=== PATIENT | male | born 1985 | race Caucasian/White ===

== ENCOUNTER 2016-08-02 17:44 | Emergency (ER) | payer MEDICARE, MEDICAID ==
[~2016-08-02] VITALS: Ht 175.3 cm; Wt 98.0 kg
[~2016-08-02 17:44] MED LIST: AMOX-358 PO; AMOX500C5 PO; ARIP15TA3 PO; BNZT1T PO; BUTA-249 PO; BUTA1CAP3 PO; CEPH-507 PO; CLIN-78 PO; DIPH12.510 PO; GBPN100C PO; HYDR-3702 PO; HYDR-700 PO; HYDR50TA77 PO; IBP800T PO; IBUP200C PO; LORA-405 PO; METH4TAB27 PO; NAPR500T PO; NAPR500T8 PO; NF-TORA10 PO; OLN5T PO; OXYC1TAB87 PO; QTP25T PO; QUET50TA PO; QUET50TA21 PO; TRAM-25 PO; ZPR20C; no medications
--- OUTSIDE RECORDS SUMMARY | 2016-08-02 17:49 | XMS REPORT | Continuity of Care Document ---
Author Author [facility] Address Unknown Phone Unavailable Support Name Relationship Address Phone SOFY HOWARD MD Caregiver [address] [place] [address] Jeremy Bobo MD Caregiver [address] [id number] [place] Next Of Kin [address] [place] [address] Insurance Providers Payer Name Policy Number Subscriber Name Relationship Medicare A And B [id number] Caleb Feliciano 20 Self / Same As Patient Advance Directives Directive Response Recorded Date/Time Advanced Directives No 07/24/16 7:37am Chief Complaint and Reason for Visit Chief Complaint Dental Complaint Reason for Visit Periapical abscess with facial involvement Problems Active Problems Medical Problem Onset Date Status Abrasion Unknown Resolved Alcohol abuse Unknown Chronic Alcohol withdrawal Unknown Acute Allergic reaction Unknown Acute Anxiety Unknown Acute Broken tooth with complication ~02/20/2015 Chronic Cellulitis of lip Unknown Acute Chronic headache disorder ~11/01/2013 Chronic Cigarette smoker 02/07/2012 Chronic Corneal abrasion ~05/12/2014 Resolved Dental caries Unknown Chronic Dental caries Unknown Chronic Dental trauma ~02/11/2015 Resolved Depression 08/06/2012 Chronic Dog bite of finger Unknown Acute Drug induced akathisia ~06/21/2015 Acute Dystonic drug reaction ~10/01/2014 Resolved Fractured tooth Unknown Resolved Gastroesophageal reflux disease ~03/03/2015 Acute Headache ~11/07/2013 Resolved Laceration of finger Unknown Acute Mental health problem ~08/19/2014 Resolved Minor head injury without loss of consciousness Unknown Resolved Nausea ~03/03/2015 Acute Nausea and vomiting in adult ~03/03/2015 Acute Pain, dental ~04/20/2014 Resolved Periapical abscess with facial involvement Unknown Acute Psychosis Unknown Acute Strain of ankle and foot Unknown Resolved Toothache ~02/25/2015 Chronic Medications Current Home Medications Medication Dose Units Route Directions Days/Qty Instructions Start Date Olanzapine 5 Mg 5 Mg ORAL Daily 30 Days 05/17/15 Benztropine Mesylate (Cogentin) 1 Mg 1 Mg ORAL Twice A Day 20 06/21/15 Naproxen 500 Mg 500 Mg ORAL Twice A Day 30 09/19/15 Clindamycin Hcl 150 Mg 450 Mg ORAL Three Times A Day 63 07/24/16 Acetaminophen/Hydrocodone Bitart 1 Each 1-2 Tab ORAL Every 6 Hours as needed for Pain 24 07/24/16 Past Home Medications Medication Directions Ordered Status Ziprasidone Hcl 20 Mg Capsule, 02/07/12 Discontinued [No Medications] , 11/01/13 Discontinued Butalb/Acetaminophen/Caffeine 1 Each Tablet, 1 Each Oral Q4-6 Hrs as needed for Pain 11/01/13 Discontinued Ibuprofen 200 Mg Capsule, 200-300 Mg Oral As Needed 11/07/13 Discontinued Aripiprazole 15 Mg Tablet, 15 Mg Oral Daily 10/01/14 Discontinued Hydroxyzine Hcl 50 Mg Tablet, 50 Mg Oral Every 6 Hours 10/01/14 Discontinued Quetiapine Fumarate 25 Mg Tablet, 25 Mg Oral Twice A Day 10/01/14 Discontinued Diphenhydramine Hcl 25 Mg/10 Ml Elixir, 25 Mg Oral Bedtime 10/01/14 Discontinued Methylprednisolone 21 Tab/Pkt Tablet, 21 Tab Oral As Directed 10/01/14 Discontinued Lorazepam 1 Mg Tablet, 1 Mg Oral Three Times A Day as needed for Anxiety 12/11 Discontinued Butalbital/Aspirin/Caffeine 1 Each Capsule, 1-2 Each Oral Every 6 Hours for Pain 12/21/14 Discontinued Quetiapine Fumarate 25 Mg Tablet, 75 Mg Oral Daily 01/01/15 Discontinued Gabapentin (Neurontin) 100 Mg Capsule, Unknown Dose Oral Three Times A Day 01/01/15 Discontinued Hydroxyzine Hcl 25 Mg Tablet, Unknown Dose Oral Three Times A Day 01/01/15 Discontinued Quetiapine Fumarate 50 Mg Tablet, 50 Mg Oral Daily 02/10/15 Discontinued Ibuprofen (Motrin) 800 Mg Tablet, 800 Mg Oral Every 8HRS 02/11/15 Discontinued Tramadol Hcl 50 Mg Tablet, 50 Mg Oral Every 8HRS as needed for Severe Pain Discontinued Oxycodone/Acetaminophen 1 Tab Tablet, 1 Tab Oral Three Times A Day as needed for Pain 02/20/15 Discontinued Amoxicillin 500 Mg Capsule, 500 Mg Oral Three Times A Day 02/20/15 Discontinued Naproxen 500 Mg Tablet.dr, 500 Mg Oral Twice A Day for Pain 02/20/15 Discontinued Quetiapine Fumarate 50 Mg Tablet, 1 Tab Oral Bedtime 02/25/15 Discontinued Ketorolac Tromethamine 10 Mg Tab, 10 Mg Oral Every 6 Hours as needed for Pain 02/25/15 Discontinued Cephalexin 500 Mg Capsule, 500 Mg Oral Three Times A Day 02/25/15 Discontinued Amoxicillin/Clavulanate Potassium 1 Each Tablet, 1 Each Oral Twice A Day Discontinued Amoxicillin 500 Mg Capsule, 500 Mg Oral Three Times A Day 09/19/15 Discontinued Social History Query Response Start Date Stop Date Smoking Status Current every day smoker Hospital Discharge Instructions No hospital discharge instructions. Plan of Care Discharge Date 07/24/16 8:00am Disposition 01 HOME OR SELF-CARE Condition at Discharge Stable Instructions/Education Provided Tooth Abscess (DC) Prescriptions See Medication Section Additional Instructions/Education See a dentist from the list in the next 1-2 weeks. Return with worsening or changing pain. Some of your test results may not be complete prior to your leaving the Emergency Department. The Emergency Department is not authorized to give test results over the phone. Please contact the doctor's office listed in this packet of information for your final results. Follow up with your primary care physician or return to the Emergency Department for worsening or worrisome symptoms. * Emergency Department phone number: [phone], x [phone] MEDICAL RECORD If you need copies of your X-rays, call [phone]. If you need copies of your medical record, including lab results, a signed authorization for release of records will be required. A telephone call for release of Health Information is not allowed. BILLING Billing can sometimes be confusing and frustrating. To help avoid confusion in the future, please take a moment to acquaint yourself with the billing parties for services. SERVICE BILLING LIBERTARIAN Emergency Room Services [facility] Physician Services [facility] X-rays [facility] Patients will receive bills for services from the appropriate provider. If you have any questions about your [facility] bill, our staff will be happy to assist you. Please call [phone], and ask for the billing department. THANK YOU for choosing [facility] as your emergency care provider! Care Plan and Goals ~~Discharge Care Plan~~ Problem: Fractured tooth, abscess, or dental caries Goal: Decreased pain. Dental repair/extraction is completed by dentist. Instructions: Practice good oral hygiene. Take medications as prescribed. Follow up with your dentist as directed. Functional Status No functional status results. Allergies, Adverse Reactions, Alerts Allergen Type Severity Reaction Status Last Updated ziprasidone Allergy Unknown Active 01/01/15 paliperidone Allergy Unknown Active 01/01/15 Immunizations No immunization records. Vital Signs Acute Vital Signs Vital Response Date/Time Temperature (Fahrenheit) 96.0 07/24/2016 8:12am Pulse 88 bpm 07/24/2016 8:12am Respirations 20 07/24/2016 8:12am Height 5 ft 9 in Weight 216 lb Body Mass Index 32.0 kg/m^2 Results No known relevant diagnostic tests, laboratory data and/or discharge summary. Procedures No known history of procedures. Encounters Encounter Location Arrival/Admit Date Discharge/Depart Date Attending Provider Departed Emergency Room [facility] 07/24/16 7:23am 07/24/16 8:00am SOFY HOWARD MD Recent Diagnosis
[2016-08-02] MEDS ORDERED: HYDR-3702 PO (18:02)
[2016-08-02 18:03] VITALS: BP 158/89
== END 2016-08-02 18:09 | disposition home or self-care (01) ==
LOC: ED 17:45
DX: K08.89 Other specified disorders of teeth and supporting structures (principal); Z98.818 Other dental procedure status
CPT/HCPCS: 99282; 99283

== ENCOUNTER 2016-09-24 16:12 | Emergency (ER) | payer MEDICARE, MEDICAID ==
[~2016-09-24] VITALS: Ht 175.3 cm; Wt 79.0 kg
--- NOTE | 2016-09-24 16:44 | NUR ---
This nurse calls Poison Control - because the type of ant poison is unknown he can't give specific guidelines. Most ant poisons cause nausea/vomiting - give supportive care. Poison Control said that alcohol should not interact with poison and give supportive care for both.
[2016-09-24 17:04] LABS: BASOPHILS % (AUTO) 0 % (0-2); EOSINOPHILS # (AUTO) 0.1 10^3uL; EOSINOPHILS % (AUTO) 0 % (0-4); MEAN CORPUSCULAR HEMOGLOBIN 31.6 PG (26.0-34.0); MEAN CORPUSCULAR HGB CONC 36.1 g/dL (31.0-37.0); MEAN CORPUSCULAR VOLUME 88 FL (80-100); MEAN PLATELET VOLUME 10.5 FL (6.0-9.5); MONOCYTES # (AUTO) 0.7 X10^3; MONOCYTES % (AUTO) 6 % (3-11); NEUTROPHILS # (AUTO) 10.2 X10^3; NEUTROPHILS % (AUTO) 78 % (51-67); PLATELET COUNT 270 10^3uL (150-450); WHITE BLOOD COUNT 13.03 10^3uL (4.0-11.0)
[2016-09-24 17:15] LABS: BILIRUBIN,URINE Negative (Negative); CLARITY,URINE Clear; COLOR,URINE Yellow; GLUCOSE, URINE (UA) Negative (Negative); LEUKOCYTE ESTERASE ,URINE Negative (Negative); PH,URINE 5.5 (5.0 - 8.0); UROBILINOGEN,URINE 0.2 mg/dL (0.2-1.0)
[2016-09-24 17:19] LABS: ALKALINE PHOSPHATASE 125 U/L (38-126); ANION GAP 20.9 MEQ/L (3-15); BUN/CREATININE RATIO 9 (10-20); CALCULATED IONIZED CALCIUM 3.9 mg/dL (3.8-4.6); TOTAL PROTEIN 8.2 g/dL (6.4-8.5)
[2016-09-24 17:22] LABS: RBC,URINE None Seen /HPF; URINE CENTRIFUGED VOLUME 12 mL
[2016-09-24 17:29] LABS: AMPHETAMINE SCREEN, URINE Negative (Negative); CANNABINOID SCREEN, URINE Positive (Negative); METHAMPHETAMINE SCREEN URINE S NEGATIVE (NEGATIVE); OPIATE SCREEN URINE Negative (Negative); PROPOXYPHENE STAT NEGATIVE (NEGATIVE)
[2016-09-24] MEDS ORDERED: ONDANSETRON 2 MG/ML (Z0FRAN) 2 ML VIAL IV ONE (18:35)
[2016-09-24] MEDS ORDERED: SODIUM CHLORIDE FLUSH 10 ML SYR IV PRN (18:35)
[2016-09-24] MEDS ORDERED: MAGNESIUM SULFATE 1GM VIAL 2 GM, THIAMINE INJ 100 MG, MULTIVITAMIN INJ 10 ML in D5LR 1,... IV SCH (18:40)
[2016-09-24] MEDS ORDERED: THIAMINE 100 MG/ML (VITAMIN B1) 2 ML VIAL ONE (18:41)
[2016-09-24] MEDS ORDERED: MULTIVITAMINS (MVI) 2 5 ML VIALS IV ONE (18:42)
[2016-09-24] MEDS ORDERED: MAGNESIUM SULFATE 1 GM/2 ML VIAL ONE (18:42)
--- NOTE | 2016-09-24 18:46 | NUR ---
Dr. Sanchez clarifies that patient took 3-4 tubes of Raid ant gel - this nurse calls poison control again. Clinician states this will not change the treatment plan - manage the nausea vomiting.
--- NOTE | 2016-09-24 23:29 | NUR ---
PT RESTING IN BED SAYS FEELING LITTLE BETTER NO LONGER WANTING TO HARM HIMSELF
--- NOTE | 2016-09-25 00:57 | NUR ---
PT CONTINUES TO SLEEP AT THIS TIME
--- NOTE | 2016-09-25 03:10 | NUR ---
DR ALEGRIA AND RN TO PTS ROOM HE IS SLEEPING AWAKENS EASILY BUT POOR EYE CONTACT AND NOT REAL VERBAL. DOES KNOW WHERE HE IS AND AGREEABLE FOR IN PATIENT [place] AT THIS TIME. IS OKAY WITH [facility]
--- NOTE | 2016-09-25 03:30 | NUR ---
NOTIFIED [facility] AND THEY REQUEST RECORDS FAXED SO FAXED NEEDED INFORMATION TO SEE IF THEY CAN ADMIT PT
--- NOTE | 2016-09-25 04:27 | NUR ---
PT SLEEPING. RN CALLED [facility] HAVE NOT HEARD BACK FROM THEM IF THEY WILL ACCEPT PT OR NOT. THEY ARE REQUESTING ANOTHER ETOH LEVEL, ET DR ALEGRIA KNOW THIS
--- NOTE | 2016-09-25 04:31 | NUR ---
DR ALEGRIA CALLING [facility]
--- NOTE | 2016-09-25 04:56 | NUR ---
HAVE SPOKEN WITH SARWAT AT [facility] AND SHARAN HAS CALLED THE PROVIDER THERE AT [facility] AND THEY SAID UNLESS HE IS STILL IN CRISIS AND WANTS TO HARM SELF THEY COULDN'T TAKE HIM THEY ARE ONLY FOR CRISIS. PT WOKE UP AND SPOKE WITH PAUL RUSS AND HE REPORTED HE STILL FEELS LIKE HARMING SELF AND DOESN'T FEEL LIKE HE WOULD BE SAFE AT HOME. RN CALLED SHARAN BACK AT AND LET HER KNOW THIS INFORMATION. BOTH DR ALEGRIA AND THIS RN HAVE CALLED AND SHARAN HAS SAID THAT BEFORE SHE CALLED THEIR DR THAT WE WOULD NEED TO REPEAT THE ETOH LEVEL. DR ALEGRIA QUESTION THIS IT HAS BEEN 10+ HOURS AND ETOH AT THAT TIME WAS 138. DR ALEGRIA DID LET SHARAN KNOW THAT SHE WOULD BE HAPPY TO VISIT WITH THE PROVIDER THERE TO EXPLAIN WHY SHE DID NOT FEEL NEED TO REPEAT ETOH, DR ALEGRIA NEVER DID GET TO TALK TO PROVIDER.
--- NOTE | 2016-09-25 05:16 | NUR ---
Marvel MAGANA APRN IS THE ONE ACCEPTING CARE
--- NOTE | 2016-09-25 05:30 | NUR ---
REPORT WAS GIVEN TO LON AT [facility] ALSO LET THEM KNOW THAT PT WOULD NOT BE LEAVING UNTIL AFTER 0700 D/T OUR EMS UNABLE TO TRANSPORT UNTIL THEN
[2016-09-25 06:51] VITALS: BP 128/69
--- NOTE | 2016-09-25 06:55 | NUR ---
REPORT TO Lillie LOZADA AND SHE ACCEPTED CARE OF PT
== END 2016-09-25 07:35 ==
LOC: ED 16:15
DX: T65.892A Toxic effect of other specified substances, intentional self-harm, initial encounter (principal); R11.2 Nausea with vomiting, unspecified; M54.5 Low back pain; M54.6 Pain in thoracic spine; F20.9 Schizophrenia, unspecified; F17.210 Nicotine dependence, cigarettes, uncomplicated; F10.129 Alcohol abuse with intoxication, unspecified; F12.10 Cannabis abuse, uncomplicated; Y90.6 Blood alcohol level of 120-199 mg/100 ml
CPT/HCPCS: 36415; 70450; 72128; 72131; 80053; 81003; 81015; 85025; 96361; 96365; 96366; 96375; 99284; G0478; G0480; J2405; J3411; J3475; J7030; 80307; 80320; 80329

== ENCOUNTER → 2016-09-25 | Outpatient (CLI) | payer MEDICARE, MEDICAID | LOC: EMS 08:15 | PROVIDERS: ATTEND Emergency Medicine | DX: T60.4X2A Toxic effect of rodenticides, intentional self-harm, initial encounter (principal) ==

== ENCOUNTER 2016-11-05 14:23 | Emergency (ER) | payer MEDICARE, MEDICAID ==
[~2016-11-05] VITALS: Ht 175.3 cm; Wt 95.6 kg
[2016-11-05] MEDS ORDERED: OLAN20TA16 PO (14:51)
[2016-11-05] MEDS ORDERED: TRAZ100T92 PO (14:51)
[2016-11-05] MEDS ORDERED: BENZ2TAB6 PO (14:51)
[2016-11-05] MEDS ORDERED: ESCI20TA39 PO (14:51)
[2016-11-05] MEDS ORDERED: HYDR-3811 PO (15:45)
[2016-11-05] MEDS ORDERED: AMOX500C5 PO (15:45)
[2016-11-05] MEDS ORDERED: PRM25T PO (15:45)
[2016-11-05 16:12] VITALS: BP 148/86
== END 2016-11-05 16:00 | disposition home or self-care (01) ==
LOC: ED 14:26
DX: G89.18 Other acute postprocedural pain (principal); Z98.818 Other dental procedure status
CPT/HCPCS: 99282; 99283

== ENCOUNTER 2016-11-11 13:18 | Emergency (ER) | payer MEDICARE, MEDICAID ==
[~2016-11-11] VITALS: Ht 180.3 cm; Wt 96.8 kg
[~2016-11-11 13:18] MED LIST changes: +BENZ2TAB6 PO; +ESCI20TA39 PO; +HYDR-3811 PO; +OLAN20TA16 PO; +PRM25T PO; +TRAZ100T92 PO
[2016-11-11 13:24] VITALS: BP 138/56
[2016-11-11] MEDS ORDERED: HYDR-3811 PO (13:47)
== END 2016-11-11 13:57 | disposition home or self-care (01) ==
LOC: EDUNIT# 13:18 → ED 13:21
DX: K08.89 Other specified disorders of teeth and supporting structures (principal); K06.9 Disorder of gingiva and edentulous alveolar ridge, unspecified; Z98.818 Other dental procedure status; F17.210 Nicotine dependence, cigarettes, uncomplicated
CPT/HCPCS: 99282; 99283

== ENCOUNTER 2016-11-19 18:20 | Emergency (ER) | payer MEDICARE, MEDICAID ==
[~2016-11-19] VITALS: Ht 180.3 cm; Wt 96.7 kg
[2016-11-19] MEDS ORDERED: NF-TORA10 PO (19:45)
[2016-11-19] MEDS ORDERED: ED- TRAMADOL 50 MG (ULTRAM) 6 TABLETS/BTL PO ONE (19:45)
[2016-11-19] MEDS ORDERED: CLIN-79 PO (19:45)
[2016-11-19] MEDS ORDERED: CLINDAMYCIN 150 MG (CLEOCIN) CAP PO ONE (19:45)
[2016-11-19 19:58] VITALS: BP 120/97
== END 2016-11-19 19:50 | disposition home or self-care (01) ==
LOC: ED 18:22
DX: M27.3 Alveolitis of jaws (principal)
CPT/HCPCS: 99282; A9270; 99283

== ENCOUNTER 2016-11-23 10:16 | Emergency (ER) | payer MEDICARE, MEDICAID ==
[~2016-11-23] VITALS: Ht 180.3 cm; Wt 90.0 kg
[~2016-11-23 10:16] MED LIST changes: +CLIN-79 PO
[2016-11-23] MEDS ORDERED: diphenhydrAMINE 50 MG/ML INJ (BENADRYL) IV ONE (10:35)
[2016-11-23 10:42] LABS: BASOPHILS % (AUTO) 0 % (0-2); EOSINOPHILS % (AUTO) 0 % (0-4); LYMPHOCYTES # (AUTO) 1.7 X10^3; MEAN CORPUSCULAR HEMOGLOBIN 30.2 PG (26.0-34.0); MEAN CORPUSCULAR HGB CONC 34.3 g/dL (31.0-37.0); MEAN CORPUSCULAR VOLUME 88 FL (80-100); MEAN PLATELET VOLUME 10.2 FL (6.0-9.5); MONOCYTES # (AUTO) 0.5 X10^3; MONOCYTES % (AUTO) 5 % (3-11); NEUTROPHILS # (AUTO) 6.6 X10^3; NEUTROPHILS % (AUTO) 75 % (51-67); PLATELET COUNT 266 10^3uL (150-450); WHITE BLOOD COUNT 8.79 10^3uL (4.0-11.0)
[2016-11-23 11:46] VITALS: BP 116/69
[2016-11-23] MEDS ORDERED: ZLP5T PO (11:46)
== END 2016-11-23 11:50 | disposition home or self-care (01) ==
LOC: EDUNIT# 10:16 → ED 10:19
DX: G24.09 Other drug induced dystonia (principal); T36.8X5A Adverse effect of other systemic antibiotics, initial encounter
CPT/HCPCS: 36415; 80048; 85025; 96361; 96374; 99283; G0480; J1200; J7030; 80320

== ENCOUNTER 2016-12-20 14:45 | Emergency (ER) | payer MEDICARE, MEDICAID ==
[~2016-12-20] VITALS: Ht 180.3 cm; Wt 96.0 kg
[~2016-12-20 14:45] MED LIST changes: +ZLP5T PO
[2016-12-20 15:14] VITALS: BP 137/78
== END 2016-12-20 15:10 | disposition home or self-care (01) ==
LOC: EDUNIT# 14:45 → ED 14:48
DX: G89.18 Other acute postprocedural pain (principal); K08.89 Other specified disorders of teeth and supporting structures
CPT/HCPCS: 99281; 99282